=== PATIENT | female | born 1965 | race Caucasian/White ===

== ENCOUNTER 2021-06-28 11:44 | Emergency (ER) | payer OTHER ==
[2021-06-28 12:04] VITALS: BP 131/84; PULSE 97; TEMP 98.7; BMI 25.6
== END 2021-06-28 15:14 | disposition home or self-care (01) ==
LOC: JER 11:44
DX: J40 Bronchitis, not specified as acute or chronic (principal)
CPT/HCPCS: 71046-TC-FY; 87804; 99284-25; C9803; U0003; U0005

== ENCOUNTER 2022-01-29 10:09 | Emergency (ER) | payer OTHER ==
[2022-01-29 10:35] VITALS: BP 139/79; PULSE 79; TEMP 98.6; BMI 25.6
[2022-01-29] MEDS ORDERED: diazePAM 5 MG TABLET PO ONE (11:34)
[2022-01-29] MEDS ORDERED: KETOROLAC TROMETHAMINE 30 MG/1 ML VIAL IM ONE (11:34)
[2022-01-29] MEDS ORDERED: LIDOCAINE 5% TOPICAL PATCH TP ONE (11:34)
[2022-01-29] MEDS ORDERED: KETOROLAC TROMETHAMINE 30 MG/1 ML VIAL ONE (11:35)
[2022-01-29] MEDS ORDERED: LIDOCAINE 5% TOPICAL PATCH ONE (11:35)
[2022-01-29] MEDS ORDERED: diazePAM 5 MG TABLET ONE (11:35)
[2022-01-29] MEDS ORDERED: LIDOCAINE PATCH REMOVAL MC SCH (22:00)
== END 2022-01-29 13:07 | disposition home or self-care (01) ==
LOC: JERFT 10:09
PROC: 3E023GC Introduction of Other Therapeutic Substance into Muscle, Percutaneous Approach (ICD-10-PCS; principal; 2022-01-29)
DX: S39.012A Strain of muscle, fascia and tendon of lower back, initial encounter (principal); X50.9XXA Other and unspecified overexertion or strenuous movements or postures, initial encounter
CPT/HCPCS: 73502-TC-LT-FY; 99284-25